=== PATIENT | female | born 1990 | race Caucasian/White ===

== ENCOUNTER 2021-09-02 07:38 | Outpatient (REF) | payer BC, SELFPAY ==
[2021-09-02 08:29] LABS: Hematocrit 39.5 % (37.0-47.0); Hemoglobin 13.1 g/dl (12.0-16.0); Mean Corpuscular HGB Conc 33.2 g/dl (31.0-35.0); Mean Corpuscular Hemoglobin 28.9 pg (27.0-33.0); Mean Corpuscular Volume 87.2 fL (80.0-98.0); Mean Platelet Volume 9.7 fL (9.4-12.3); Platelet Count 258 X10*3/uL (160-400); Red Blood Count 4.53 X10*6/uL (4.20-5.50); Red Cell Distribution Width 12.8 % (11.0-16.0); White Blood Count 7.3 X10*3/uL (4.8-10.8)
[2021-09-02 08:40] LABS: Estimated Average Glucose 100 mg/dL; Hemoglobin A1c % 5.1 %
[2021-09-02 08:49] LABS: Alanine Aminotransferase 23 U/L (0-31); Albumin Level 4.1 g/dL (3.5-5.0); Alkaline Phosphatase 66 U/L (39-117); Anion Gap 11 (12-20); Aspartate Amino Transferase 18 U/L (5-31); Bilirubin Total 0.3 mg/dL (0.0-1.0); Blood Urea Nitrogen 16 mg/dL (9-16); Calcium 9.4 mg/dL (8.4-10.2); Carbon Dioxide 29 mmol/L (22-29); Chloride 107 mmol/L (96-108); Cholesterol 202 mg/dL; Estimated Glomerular Filt Rate > 60; Glucose Fasting 110 mg/dL (60-99); HDL Cholesterol 33 mg/dL; LDL Cholesterol Calculated 142 mg/dl; Potassium 4.3 mmol/L (3.3-5.1); Sodium 143 mmol/L (135-145); Total Protein 6.3 g/dL (6.5-8.0); Triglycerides 135 mg/dL
[2021-09-02 09:15] LABS: TSH reflex Free T4 2.34 uIU/mL (0.32-4.0)
== END 2021-09-02 07:39 | disposition home or self-care (01) ==
LOC: HO.LAB 07:38
PROVIDERS: Visit Provider Physician Assistant
DX: E03.9 Hypothyroidism, unspecified (principal); I10 Essential (primary) hypertension; Z13.220 Encounter for screening for lipoid disorders; Z13.1 Encounter for screening for diabetes mellitus
CPT/HCPCS: 36415; 80053; 80061; 83036; 84443; 85027

== ENCOUNTER 2023-04-22 11:56 | Emergency (ER) | payer BC, SELFPAY ==
[2023-04-22 12:00] VITALS: BP 148/93; PULSE 92; RESP 18; TEMP 36.6; O2SAT 97; BMI 58.7
--- NOTE | 2023-04-22 12:00 | ED_ITS ---
HPI - Extremity Injury (Upper) General Chief Complaint: Extremity Injury, Upper Stated Complaint: R Pinky Injury Dog Bite 04/22/23 Time Seen by Provider: 04/22/23 12:13 Source: patient and family Mode of arrival: ambulatory Limitations: no limitations History of Present Illness HPI narrative: 32 yo female with history of hypothyroidism, unknown rheum disorder currently on prednisone (day 2), right hand dominant here with dog bite to right 5th digit from her own dog just [employer]. Her last tetanus was 2012. Related Data Home Medications Medication Instructions Recorded Confirmed cholecalciferol (vitamin D3) 125 125 mcg PO DAILY 02/21/21 02/21/21 mcg (5,000 unit) tablet levothyroxine 150 mcg tablet mcg PO DAILY 02/21/21 02/21/21 metformin 500 mg tablet,extended 500 mg PO BID 02/21/21 02/21/21 release 24 hr norethindrone (contraceptive) 0.35 0.35 mg PO DAILY 02/21/21 02/21/21 mg tablet Previous Rx's Medication Instructions Recorded prednisone 10 mg tablet 10 mg PO DAILY 6 days #12 tabs 02/21/21 amoxicillin 875 mg-potassium 1 tab PO BID #14 tabs 04/22/23 clavulanate 125 mg tablet Allergies Allergy/AdvReac Type Severity Reaction Status Date / Time cats and seasonal Allergy Unknown sneezing Uncoded 04/22/23 11:59 and runny nose Codeine Phosphate Allergy Unknown nausea and Uncoded 04/22/23 11:59 vomitting Codeine Sulfate Allergy Unknown nausea and Uncoded 04/22/23 11:59 vomiting Review of Systems Review of Systems: Yes all other systems are reviewed and are negative Constitutional: Constitutional: Reports no additional constitutional complaints, Denies body ache(s), Denies chills, Denies fever(s), Denies headache(s) and Denies weakness Eyes: Eyes: Reports no additional eye complaints and Denies change in vision ENT: Reports system reviewed and no additional complaints, except as documented, Denies dizziness, Denies headache(s), Denies nasal congestion, Denies nasal discharge and Denies neck pain Cardiovascular: Cardiovascular: Reports no additional cardiovascular complaints, Denies chest pain, Denies leg edema and Denies dyspnea Respiratory: Respiratory: Reports no additional respiratory complaints, Denies cough and Denies dyspnea Gastrointestinal: Gastrointestinal: Reports no additional gastrointestinal complaints, Denies abdominal pain, Denies diarrhea, Denies nausea and Denies vomiting Genitourinary: Genitourinary: Reports no additional female genitourinary complaints and Denies urinary incontinence Musculoskeletal: Musculoskeletal: Reports no additional musculoskeletal complaints, Denies back pain, Denies arthralgias, Denies joint swelling, Denies neck pain, Denies numbness and Denies tingling Integumentary/Breasts: Skin/Breast: Reports system reviewed and no additional complaints, except as docu, Denies rash and Reports wounds Neurologic: Reports system reviewed and no additional complaints, except as documented, Denies Abnormal speech present, Denies dizziness, Denies headache(s), Denies numbness, Denies tingling and Denies weakness PMF Past Medical History Attestation statement: The following information was validated with the patient. Source: old records reviewed and nursing notes reviewed Family History Family History Maternal Grandmother Breast CA Social History Social History Housing: House Alcohol intake: current Alcohol intake frequency: holidays/special occasions only Patient Tobacco Use Status: Never used Tobacco e-Cigarette/Vaping Use: Never Used Second Hand Smoke Exposure: No Advance Directives: No service: No Current occupational status: employed Current occupation: [employer] Physical Exam Vital Signs: Vital Signs: Last Vital Signs Temp 98 F 04/22/23 12:00 Pulse 92 04/22/23 12:00 Resp 18 04/22/23 12:00 BP 148/93 H 04/22/23 12:00 Pulse Ox 97 04/22/23 12:00 O2 Del Method Room Air 04/22/23 12:00 BMI result Body Mass Index 58.7 Const: General: cooperative, healthy appearing, comfortable and no acute distress Orientation/consciousness: patient oriented x3 Limitations: no limitations HEENT: Head: Yes normal to inspection Ears: hearing grossly normal bilaterally General nose exam: Normal external nose present Face and sinus: Yes normal facial exam Mouth: Normal oral and palatal mucosa present Throat: Yes posterior oropharynx normal Eyes: General: appearance normal, both eyes and all related structures Pupils: Equal, round and reactive pupils present Neck: Neck: Yes normal visual inspection Chest: Chest palpation & inspection: normal inspection of the chest Resp: Effort & Inspection: normal respiratory effort Auscultation: clear to auscultation bilaterally Cardio: Rate: regular rate Rhythm: regular rhythm Peripheral pulses: Peripheral pulses 2+ throughout GI: Inspection: Yes normal to inspection Palpation (GI): Soft to palpation and nontender Auscultation: normal bowel sounds Back/Spine/Pelvis: Thoracic/Lumbar Spine: thoracic and lumbar spine normal to inspection Skin: General skin exam: no rashes or lesions noted Neuro: General: patient oriented x3, no focal motor deficits and normal sensation to monofilament Cranial nerves: Yes Equal, round and reactive pupils present Cognition (Neuro): normal cognition Speech: No Abnormal speech present Gait exam (Neuro): Normal gait present Motor exam (neuro): 5/5 motor strength present throughout Extrem: Other: To the distal right 5th digit to the volar aspect there is a curved skin avulsion, bleeding controlled. FROM of the digit with no difficulty General: Yes normal to inspection Course Course Course Narrative: This is an RME: Additional HPI, ROS, PE not included below will be deferred to primary provider. This is a 10-hdeo-onv-female, hashimotos thyroiditis, chronic joint pain currently on prednisone taper, presenting to the emergency department with complaints of right fifth pinky pain since today. Pt reports that her dogs were tangled on its collar and bit patient in the fifth pinky. partial thickness laceration noted to right fifth pinky, needs cleansing. Unsure of last tetanus, but looking on pt portal. Dogs are UTD with vaccinations Plan: clean wound, ?tdap Medications Administered Discontinued Medications Generic Name Dose Route Start Last Admin Trade Name Jaqui PRN Reason Stop Dose Admin Diphtheria/Tetanus/Acell Pertussis 0.5 ml 04/22/23 12:29 04/22/23 12:39 Diphth,Pertus(Acell),Tet Adult 0.5 Ml Syringe IM 04/22/23 12:30 0.5 ml .ONCE ONE Administration Medical Decision Making Medical Decision Making MDM Narrative: 32 yo female right hand dominant here with dog bite to right 5th digit. Dog is UTD with vaccines Patient will receive tetanus vaccine She has a small skin avulsion not conducive to closure with sutures. This was copiously irrigated by nursing with saline/betadine. A dressing was applied over this. Will dc home with oral antibiotics. Reviewed worrisome signs..symptoms with patient and when to seek additional care. Comfortable with discharge home Differential Diagnosis Differential Diagnoses: The differential diagnosis associated with the presentation includes laceration, avulsion No palpable soft tissue FB felt Tests considered The following testing was considered but not selected: X-ray if concern for soft tissue FB-none palpated low concern Prescription Management I considered prescription management with: Antibiotic dog bite needing prophylactic antibiotics. Discharge Plan Discharge Clinical Impression: Dog bite Patient Disposition: Home, Self-Care Instructions: Diphtheria/Acellular Pertussis/Tetanus Booster Vaccine (By injection), Animal Bite (ED) Additional Instructions: Leave the dressing in place until tomorrow then wash daily with soap and water Return for signs of infection (redness, swelling, drainage, odor, fever, difficulty moving the finger) Motrin or tylenol for pain Prescriptions: New amoxicillin-pot clavulanate 875-125 mg tablet 1 tab PO BID Qty: 14 0RF No Action levothyroxine 150 mcg tablet PO DAILY metformin 500 mg tablet extended release 24 hr 500 mg PO BID norethindrone (contraceptive) 0.35 mg tablet 0.35 mg PO DAILY cholecalciferol (vitamin D3) 125 mcg (5,000 unit) tablet 125 mcg PO DAILY prednisone 10 mg tablet 10 mg PO DAILY 6 Days Qty: 12 0RF Rx Instructions: Take 3 tablets x2 days, take 2 tabs x 2 days, take 1 tab x 2 days Referrals: Justine Ayon MD [Primary Care Provider] - 1 week
--- NOTE | 2023-04-22 12:11 | PC.NURSE ---
pt reports her dog is up to date on his vaccines, last tetanus was 2013
[2023-04-22] MEDS: Diphth,Pertus(ACell),Tet Adult 0.5 ML SYRINGE IM (12:39)
--- NOTE | 2023-04-22 12:45 | PC.NURSE ---
pinky finger soaked in NS and iodine
== END 2023-04-22 12:57 | disposition home or self-care (01) ==
PROVIDERS: Emergency Provider Student in an Organized Health Care Education/Training Program; PCP Student in an Organized Health Care Education/Training Program
DX: S61.256A Open bite of right little finger without damage to nail, initial encounter (principal); W54.0XXA Bitten by dog, initial encounter; Y93.9 Activity, unspecified; Y92.019 Unspecified place in single-family (private) house as the place of occurrence of the external cause; Y99.9 Unspecified external cause status
CPT/HCPCS: 90471; 90715; 99282; 99284

== ENCOUNTER 2024-08-14 20:02 | Emergency (ER) | payer BC, SELFPAY ==
--- NOTE | 2024-08-14 20:06 | ED.GENADULT ---
HPI - General Adult General Chief complaint: Wound/Laceration Stated complaint: Would on left hand Time Seen by Provider: 08/14/24 22:06 Source: patient, RN notes reviewed and old records reviewed Mode of arrival: ambulatory Limitations: no limitations History of Present Illness ED Provider: Brittany HPI narrative: 34-year-old female presents for evaluation of a left hand laceration. She was trying to open a box with scissors about 20 minutes prior to arrival. She slipped and accidentally stabbed herself with a scissors. She has a laceration in between the web spacing of the left 1st and 2nd fingers. Her tetanus was last updated about a year ago Bleeding is controlled Related Data Home Medications ?Medication ?Instructions ?Recorded ?Confirmed cholecalciferol (vitamin D3) 125 125 mcg PO DAILY 02/21/21 02/21/21 mcg (5,000 unit) tablet levothyroxine 150 mcg tablet mcg PO DAILY 02/21/21 02/21/21 metformin 500 mg tablet,extended 500 mg PO BID 02/21/21 02/21/21 release 24 hr norethindrone (contraceptive) 0.35 0.35 mg PO DAILY 02/21/21 02/21/21 mg tablet Previous Rx's ?Medication ?Instructions ?Recorded prednisone 10 mg tablet 10 mg PO DAILY 6 days #12 tabs 02/21/21 amoxicillin 875 mg-potassium 1 tab PO BID #14 tabs 04/22/23 clavulanate 125 mg tablet Allergies Allergy/AdvReac Type Severity Reaction Status Date / Time cats and seasonal Allergy Unknown sneezing Uncoded 08/14/24 20:10 and runny nose Codeine Phosphate Allergy Unknown nausea and Uncoded 08/14/24 20:10 vomitting Codeine Sulfate Allergy Unknown nausea and Uncoded 08/14/24 20:10 vomiting Review of Systems Constitutional: Constitutional: Denies body ache(s), Denies chills and Denies fever(s) Eyes: Eyes: Denies blurry vision Integumentary/Breasts: Skin/Breast: Reports wounds PMFSH Family History Family History Maternal Grandmother Breast CA Social History Social History Housing: House Alcohol intake: current Alcohol intake frequency: holidays/special occasions only Patient Tobacco Use Status: Never used Tobacco e-Cigarette/Vaping Use: Never Used Second Hand Smoke Exposure: No Advance Directives: No Advance Directives Information Provided: No service: No Current occupational status: employed Current occupation: [employer] Physical Exam ED Vital Signs: Vital Signs - 24 hr 08/14/24 20:08 Temperature 97.2 F Pulse Rate 72 Respiratory Rate 18 Blood Pressure 110/58 L Pulse Oximetry 97 Oxygen Delivery Method Room Air BMI result Body Mass Index 60.5 Const General: healthy appearing, comfortable, no acute distress, alert and awake Nutritional Appearance: well nourished Orientation/consciousness: patient oriented x3 HENMT Head: Yes normocephalic and Yes atraumatic Eyes Eyelids: Yes eyelids normal Conjunctivae: conjunctivae normal Sclerae: sclerae normal Corneas: corneas normal Pupils: Equal, round and reactive pupils present EOM: EOMs intact bilaterally Neck Neck: Yes full ROM Resp Effort & Inspection: normal respiratory effort, able to speak in complete sentences and not labored Skin Other: There was an about 2 cm linear laceration to the web spacing of the left 1st and 2nd fingers. No active bleeding General skin exam: elasticity normal Neuro General: patient oriented x3 Cranial nerves: Yes Equal, round and reactive pupils present and Yes Bilaterally intact EOM present Cognition (Neuro): normal cognition Extrem Other: Moving all extremities well without any obvious deformities Course Course Course Narrative: This is a rapid medical exam performed by Cristela Rose NP: Additional HPI, ROS, PE not included below will be deferred to primary provider. Patient is a 34-year-old right hand dominant female with history of hypothyroidism, PCOS presenting to the ED with laceration to left hand. Accidentally cut with scissors while attempting to open a box. Unsure last Tdap. 1cm lac between left thumb and index finger. Full ROM all fingers. Plan: tdap, needs 1-2 sutures Medications Administered Discontinued Medications Generic Name Dose Route Start Last Admin Trade Name Freq PRN Reason Stop Dose Admin Diphtheria/Tetanus/Acell Pertussis 0.5 ml 08/14/24 20:09 08/14/24 21:14 Diphth,Pertus(Acell),Tet Adult 0.5 Ml Syringe IM 08/14/24 20:10 Not Given .ONCE ONE Lidocaine/Epinephrine 10 ml 12/22/24 22:59 08/14/24 23:04 Lidocaine Hcl 1%/Epi 1:100,000 10 Ml Vial INFILTRATI 08/14/24 23:00 10 ml ONCE ONE Administration Procedures Laceration Laceration 1: Site: hand Side (If applicable): left Size (cm): 2 Description: linear Depth: simple, single layer Local Anesthetic: lidocaine 1% and with epi Amount of anesthesia used (mL): 2 Pre-repair: wound explored Skin layer closed with: nylon Size (cm): 4-0 Number of sutures: 3 Technique: simple, interrupted Medical Decision Making Medical Decision Making MDM Narrative: 34-year-old female presents for evaluation of a left hand wound, the wound was cleaned and closed with 3 sutures. There was no evidence of tendon injury or foreign body retention. Differential Diagnosis Differential Diagnoses: The differential diagnosis associated with the presentation includes Laceration Skin tear Puncture wound Abrasion Discharge Plan Discharge Clinical Impression: Laceration of hand, left Patient Disposition: Home, Self-Care Instructions: Laceration (ED) Additional Instructions: You had 3 sutures placed to your left hand. These can be removed in 10-14 days. Keep the area clean and dry Follow-up with your primary doctor, return for new or worsening symptoms Prescriptions: No Action amoxicillin-pot clavulanate 875-125 mg tablet 1 tab PO BID Qty: 14 0RF levothyroxine 150 mcg tablet PO DAILY metformin 500 mg tablet extended release 24 hr 500 mg PO BID norethindrone (contraceptive) 0.35 mg tablet 0.35 mg PO DAILY cholecalciferol (vitamin D3) 125 mcg (5,000 unit) tablet 125 mcg PO DAILY prednisone 10 mg tablet 10 mg PO DAILY 6 Days Qty: 12 0RF Rx Instructions: Take 3 tablets x2 days, take 2 tabs x 2 days, take 1 tab x 2 days Print Language: Serbian
[2024-08-14 20:08] VITALS: BP 110/58; PULSE 72; RESP 18; TEMP 36.2; O2SAT 97; BMI 60.5
[2024-08-14] MEDS: Lidocaine HCl 1%/Epi 1:100,000 10 ML VIAL INFILTRATI (23:04)
[2024-08-14 23:30] VITALS: BP 110/58; PULSE 72; RESP 18; TEMP 36.2; O2SAT 97
== END 2024-08-14 23:30 | disposition home or self-care (01) ==
PROVIDERS: Emergency Provider Emergency Medicine
DX: S61.412A Laceration without foreign body of left hand, initial encounter (principal); W27.2XXA Contact with scissors, initial encounter; Y93.89 Activity, other specified; Y92.89 Other specified places as the place of occurrence of the external cause; Y99.8 Other external cause status; Z23 Encounter for immunization
CPT/HCPCS: 12001; 90471; 90472; 99283; 99284; J2004